=== PATIENT | male | born 1975 | race Caucasian/White ===

== ENCOUNTER 2017-09-30 09:00 | Outpatient (RCR) | payer OTHER, SELFPAY | END 2017-09-30 23:59 | LOC: PT 09:00 | PROVIDERS: Visit Provider Physician Assistant Medical | DX: M97.8XXA Periprosthetic fracture around other internal prosthetic joint, initial encounter (principal) | CPT/HCPCS: 97010; 97014; 97110; 97140; 97161; G0283 ==

== ENCOUNTER → 2017-11-07 10:40 | Outpatient (REF) | payer OTHER, SELFPAY ==
[2017-11-07 14:52] LABS: Amphetamine/Metha Screen,Urine Negative ng/mL (<1000); Barbiturates Screen,Urine Negative ng/mL (<200); Benzodiazepines Screen,Urine Negative ng/mL (200); Cannabinoid Screen,Urine Negative ng/mL (<50); Cocaine Screen,Urine Negative ng/g (<300); Methadone Screen,Urine Negative ng/mL (<300); Opiate Screen,Urine Negative ng/mL (<300); Phencyclidine Screen,Urine Negative ng/mL (<25)
== END ==
LOC: LAB 10:40
PROVIDERS: Visit Provider Nurse Practitioner Family
DX: Z79.899 Other long term (current) drug therapy (principal)
CPT/HCPCS: 80305

== ENCOUNTER → 2017-11-07 13:43 | Outpatient (CLI) | payer OTHER, SELFPAY | PROVIDERS: Visit Provider Nurse Practitioner Family | DX: Z79.899 Other long term (current) drug therapy (principal) ==

== ENCOUNTER → 2017-12-02 09:56 | Outpatient (REF) | payer OTHER, SELFPAY ==
[2017-12-02 15:03] LABS: Amphetamine/Metha Screen,Urine Negative ng/mL (<1000); Barbiturates Screen,Urine Negative ng/mL (<200); Benzodiazepines Screen,Urine Negative ng/mL (200); Cannabinoid Screen,Urine Negative ng/mL (<50); Cocaine Screen,Urine Negative ng/g (<300); Methadone Screen,Urine Negative ng/mL (<300); Opiate Screen,Urine Positive ng/mL (<300); Phencyclidine Screen,Urine Negative ng/mL (<25)
== END ==
LOC: LAB 09:56
PROVIDERS: Visit Provider Nurse Practitioner Family
DX: Z79.899 Other long term (current) drug therapy (principal)
CPT/HCPCS: 80305

== ENCOUNTER 2018-01-01 09:00 | Outpatient (RCR) | payer OTHER, SELFPAY | END 2018-01-01 09:01 | disposition home or self-care (01) | LOC: PT 09:00 | PROVIDERS: Visit Provider Physician Assistant Medical | DX: M97.8XXA Periprosthetic fracture around other internal prosthetic joint, initial encounter (principal) | CPT/HCPCS: 97010; 97014; 97110; 97140; 97164; G0283 ==

== ENCOUNTER → 2018-01-02 11:15 | Outpatient (REF) | payer OTHER, SELFPAY ==
[2018-01-02 19:04] LABS: Amphetamine/Metha Screen,Urine Negative ng/mL (<1000); Barbiturates Screen,Urine Negative ng/mL (<200); Benzodiazepines Screen,Urine Negative ng/mL (200); Cannabinoid Screen,Urine Negative ng/mL (<50); Cocaine Screen,Urine Negative ng/g (<300); Methadone Screen,Urine Negative ng/mL (<300); Opiate Screen,Urine Negative ng/mL (<300); Phencyclidine Screen,Urine Negative ng/mL (<25)
== END ==
LOC: LAB 11:15
PROVIDERS: Visit Provider Nurse Practitioner Family
DX: Z79.899 Other long term (current) drug therapy (principal)
CPT/HCPCS: 80305

== ENCOUNTER → 2018-01-02 20:48 | Outpatient (CLI) | payer OTHER, SELFPAY ==
[2018-01-14 06:43] LABS: Opiates Negative (Cutoff=100)
== END ==
PROVIDERS: Visit Provider Nurse Practitioner Family
DX: Z79.891 Long term (current) use of opiate analgesic (principal)
CPT/HCPCS: 80361; 80365; G0480

== ENCOUNTER 2018-01-12 13:47 | Outpatient (RCR) | payer OTHER, SELFPAY | END 2018-01-12 13:48 | disposition home or self-care (01) | LOC: PT 13:47 | PROVIDERS: Family Provider Emergency Medicine; PCP Emergency Medicine; Visit Provider Physician Assistant Medical | DX: M97.8XXA Periprosthetic fracture around other internal prosthetic joint, initial encounter (principal); Z96.649 Presence of unspecified artificial hip joint | CPT/HCPCS: 97163 ==

== ENCOUNTER → 2018-01-14 13:33 | Outpatient (CLI) | payer OTHER, SELFPAY ==
--- NOTE | 2018-01-14 13:35 | CA_ITS ---
PROCEDURE: 2-D M-mode and color Doppler study INDICATIONS FOR THE TEST: Chest pain COPD Heart Murmur Tobacco Smoking+ Palpitations Fatigue+ Syncope Edema Hypertension+Diabetes Mellitus Rheumatic Fever SOB+SONI Obesity Hyperlipidemia Family History HD Additional History dizziness PATIENT INFORMATION HEIGHT: 69 WEIGHT:179 GENDER: Male B/P: 172/92 2-D/M-MODE INTERPRETATION: 2-D MEASUREMENTS OBSERVED VALUES IN CMS Right Ventricular Dimension (RVDd) 2.3 Interventricular Septum (Thickness)(IVsd) 1.2 Left Ventricular Internal Dimensions(LVIDd) 4.7 Left Ventricular Posterior Wall (Thickness)(LVPWd) 0.9 Aortic Root 3.0 Aortic Cusp Separation 2.2 Left Atrial Dimensions (LAD) 3.5 2D 1. Left atrium is mildly enlarged, left ventricle is normal size, there is mild concentric left ventricular hypertrophy, visually estimated ejection fraction of 55% with no obvious regional wall motion abnormality. 2. The right atrium and right ventricle are mildly enlarged with normal contractility. 3. The aortic valve is minimally thickened and fibrosed. 4. The mitral and tricuspid valvular minimally thickened. 5. The pulmonic valve is poorly 6. There is trivial pericardial effusion noted. DOPPLER INTERROGATION: Doppler interrogation of the aortic, mitral and tricuspid valvular presence of mild aortic, mild mitral and tricuspid regurgitation. Tricuspid regurgitant jet velocity is insufficient for calculation of the right ventricular systolic pressure, grade 1 diastolic dysfunction seen with tissue Doppler evidence of raised left atrial pressure. CONCLUSION: 1. Mild biatrial enlargement, normal left ventricular size, mild concentric left ventricular hypertrophy, visually estimated ejection fraction of 55% with no obvious regional wall motion abnormality, grade 1 diastolic dysfunction seen with tissue Doppler evidence of grade left atrial pressure. 2. Mild aortic, mild mitral and tricuspid regurgitation. 3. There is trivial pericardial effusion noted.
== END ==
PROVIDERS: Family Provider Emergency Medicine; PCP Emergency Medicine; Visit Provider Internal Medicine
DX: I10 Essential (primary) hypertension (principal); R06.00 Dyspnea, unspecified; F17.200 Nicotine dependence, unspecified, uncomplicated
CPT/HCPCS: 93306

== ENCOUNTER → 2018-01-19 11:08 | Outpatient (REF) | payer OTHER, SELFPAY ==
[2018-01-19 13:56] LABS: Amphetamine/Metha Screen,Urine Negative ng/mL (<1000); Barbiturates Screen,Urine Negative ng/mL (<200); Benzodiazepines Screen,Urine Negative ng/mL (200); Cannabinoid Screen,Urine Negative ng/mL (<50); Cocaine Screen,Urine Negative ng/g (<300); Methadone Screen,Urine Negative ng/mL (<300); Opiate Screen,Urine Negative ng/mL (<300); Phencyclidine Screen,Urine Negative ng/mL (<25)
== END ==
LOC: LAB 11:08
PROVIDERS: Visit Provider Nurse Practitioner Family
DX: Z79.899 Other long term (current) drug therapy (principal)
CPT/HCPCS: 80305

== ENCOUNTER → 2018-06-30 11:52 | Outpatient (CLI) | payer OTHER, SELFPAY ==
[2018-06-30 13:07] LABS: Anion Gap 11.7 mEq/L (5-15); Blood Urea Nitrogen 5 mg/dL (7-18); Calcium 9.1 mg/dL (8.5-10.1); Carbon Dioxide 31 mmol/L (21.0-32.0); Chloride 102 mmol/L (98-107); Estimated Glomerular Filt Rate 124 ml/min (>60); GFR (African American) 150 ML/MIN (>60); Glucose 99 mg/dL (74-106); Potassium 3.7 mmoL/L (3.5-5.1); Sodium 141 mmol/L (136-145)
== END ==
PROVIDERS: Family Provider Emergency Medicine; PCP Emergency Medicine; Visit Provider Internal Medicine Cardiovascular Disease
DX: I10 Essential (primary) hypertension (principal); F17.200 Nicotine dependence, unspecified, uncomplicated
CPT/HCPCS: 36415; 80048

== ENCOUNTER → 2020-08-15 17:12 | Outpatient (CLI) | payer BC, OTHER, SELFPAY ==
[2020-08-15 18:43] LABS: Basophils # 0.1 K/mm3 (0-0.2); Basophils % 0.4 % (0.1-2.0); Eosinophils # 0.2 K/mm3 (0.0-0.4); Eosinophils % 1.6 % (0.1-12.0); Hematocrit 45.1 % (42.0-52.0); Hemoglobin 15.3 g/dL (14.1-18.0); Lymphocytes # 3.3 K/mm3 (0.7-4.5); Mean Corpuscular Hemoglobin 30.4 pg (27.0-31.2); Mean Corpuscular Volume 89.5 fl (80-94); Mean Platelet Volume 8.9 fl (7.4-10.4); Monocytes # 0.8 K/mm3 (0.1-1.0); Monocytes % 6.5 % (1.7-9.3); Neutrophils # 7.4 K/mm3 (1.8-7.8); Neutrophils % 63.4 % (37.0-80.0); Platelet Count 346 K/mm3 (142-424); Red Blood Count 5.04 M/mm3 (4.60-6.20); Red Cell Distribution Width 13.7 % (11.5-17.5); White Blood Count 11.6 K/mm3 (4.8-10.8)
[2020-08-15 19:42] LABS: Alanine Aminotransferase 22 U/L (12-78); Albumin Level 4.4 g/dl (3.5-5.0); Albumin/Globulin Ratio 1.6 (1.1-1.8); Alkaline Phosphatase 85 U/L (38-126); Anion Gap 13.1 mEq/L (5-15); Aspartate Amino Transferase 27 U/L (17-59); Bilirubin,Total 0.5 mg/dl (0.2-1.3); Blood Urea Nitrogen 10 mg/dl (9-20); Calcium 9.4 mg/dl (8.4-10.2); Carbon Dioxide 29 mmol/L (22.0-30.0); Chloride 104 mmol/L (98-107); Chol/HDL Ratio 2.9 (1-3.5); Cholesterol 113 mg/dl (140-200); Estimated Glomerular Filt Rate 92 ml/min (>60); GFR (African American) 111 ML/MIN (>60); Globulin 2.8 g/dL (1.3-3.2); Glucose 99 mg/dl (74-100); HDL Cholesterol 39 mg/dl (40-60); Potassium 4.1 mmoL/L (3.5-5.1); Sodium 142 mmol/L (136-145); Total Protein,Serum 7.2 g/dl (6.3-8.2); Triglycerides 150 mg/dl (30-150); VLDL Cholesterol 30 mg/dL (0-40)
[2020-08-15 19:53] LABS: Direct LDL Cholesterol 61.44 mg/dL (100-129)
[2020-08-15 19:58] LABS: 25-OH Vitamin D, Total 24.5 ng/mL (30-100); Free T4 (Free Thyroxine) 1.56 ng/dl (0.78-2.19)
[2020-08-15 20:13] LABS: Thyroid Stimulating Hormone 1.08 uIU/mL (0.465-4.68)
== END ==
PROVIDERS: Visit Provider Emergency Medicine
DX: R06.00 Dyspnea, unspecified (principal); E55.9 Vitamin D deficiency, unspecified
CPT/HCPCS: 80053; 80061; 82306; 84439; 84443; 85025

== ENCOUNTER 2022-05-19 10:04 | Emergency (ER) | payer OTHER, SELFPAY ==
[2022-05-19 10:16] VITALS: BMI 20.7
[2022-05-19 10:17] VITALS: BP 145/93; PULSE 79; RESP 18; TEMP 36.8; O2SAT 100; BMI 20.7
--- NOTE | 2022-05-19 10:17 | XR_ITS ---
PROCEDURE INFORMATION: Exam: XR Left Hip Exam date and time: 05/19/2022 10:39 AM Age: 47 years old Clinical indication: Injury or trauma; Fall; Blunt trauma (contusions or hematomas); Left; Hip TECHNIQUE: Imaging protocol: Radiologic exam of the Left hip. Views: 2 or 3 views hip with pelvis when performed. COMPARISON: CR SPLUMBLM XR lumbar spine 2-3V 02/14/2018 10:52 AM FINDINGS: Bones/joints: Ham and screw proximal right femur. No acute fracture or dislocation left hip. Soft tissues: Unremarkable. IMPRESSION: No acute fracture or dislocation left hip.
--- NOTE | 2022-05-19 10:17 | XR_ITS ---
PROCEDURE INFORMATION: Exam: XR Chest Exam date and time: 05/19/2022 10:36 AM Age: 47 years old Clinical indication: Injury or trauma; Fall; Blunt trauma (contusions or hematomas) TECHNIQUE: Imaging protocol: Radiologic exam of the chest. Views: 2 views. COMPARISON: CR CXR2 CHEST-AP VIEW ONLY 08/24/2017 5:37 PM FINDINGS: Lungs: Unremarkable. No consolidation. Pleural spaces: Unremarkable. No pleural effusion. No pneumothorax. Heart/Mediastinum: Unremarkable. No cardiomegaly. Bones/joints: Unremarkable. IMPRESSION: No acute findings.
--- NOTE | 2022-05-19 10:46 | HMH.EDGENADL ---
ED Disposition Clinical Impression: Traumatic chest pain Disposition: Home, Self-Care Condition on Discharge: Fair Additional Instructions: Take prescriptions as prescribed. If you have any other concerning signs or symptoms, return to your primary care provider or the emergency department for further evaluation. Prescriptions: Lidocaine 1 each TP DAILY #10 patch Transmission [facility]: [id number] methocarbamoL [Methocarbamol 500mg Tablet] 1,500 mg PO TID 5 Days #45 tab Transmission Status: [id number] Referrals: Stanley Hansen MD [Primary Care Provider] - Forms: Work/School Release - Critical Care Critical Care Time: No Attestation: On , the high probability of a clinically significant, sudden or life threatening deterioration of the following system(s) required my full and direct attention, intervention and personal management. The time I documented below is in addition to time spent performing reported procedures but includes the following listed in this critical care notation. Medical Decision Making - Ulises Inquiry Pt receiving controlled substance: No Vital Signs: 05/19/22 10:17 05/19/22 10:53 05/19/22 10:57 Temperature 98.2 F Temperature Source Oral Pulse Rate 82 82 Pulse Rate [Left Radial] 79 Respiratory Rate 18 Blood Pressure 165/99 H Blood Pressure [Right Arm] 145/93 H Blood Pressure Mean 114 Blood Pressure Mean [Right Arm] 110 Blood Pressure Source Blood Pressure Position 02 Sat by Pulse Oximetry 100 99 100 Oxygen Delivery Method Room Air Room Air Room Air 05/19/22 11:00 05/19/22 11:30 05/19/22 12:23 Temperature 98.2 F Temperature Source Oral Pulse Rate 73 65 77 Pulse Rate [Left Radial] Respiratory Rate 20 Blood Pressure 170/95 H 168/101 H 137/89 Blood Pressure [Right Arm] Blood Pressure Mean 120 Blood Pressure Mean [Right Arm] Blood Pressure Source Automatic Cuff Blood Pressure Position Sitting 02 Sat by Pulse Oximetry 99 99 Oxygen Delivery Method Room Air Room Air Orders (Tests/Meds): ED MEDICATIONS Discontinued Medications Generic Name Dose Route Start Last Admin Trade Name Freq PRN Reason Stop Dose Admin Hydrocodone Bitart/Acetaminophen 1 tab 05/19/22 10:44 05/19/22 10:56 Hydrocodone/Apap 5/325 Mg Tablet PO 05/19/22 10:45 1 tab ONCE ONE Administration Diazepam 2 mg 05/19/22 10:44 05/19/22 11:03 Diazepam 2mg Tablet PO 05/19/22 10:45 2 mg ONCE ONE Administration Lidocaine 1 each 05/19/22 11:02 05/19/22 11:03 Lidocaine 5% Transdermal Patch TP 05/19/22 11:03 1 each ONCE ONE Administration Methocarbamol 1,500 mg 05/19/22 10:46 05/19/22 10:56 Methocarbamol 500mg Tablet PO 05/19/22 10:47 1,500 mg ONCE ONE Administration Medical Decision Narrative: Is a 47-year-old male with history of hypertension presenting with left-sided pain after fall. On arrival, patient hemodynamically stable, alert, oriented, moving all extremities spontaneously, pupils equal and reactive to light, GCS 15. Differential occludes fracture, sprain, strain, pneumothorax, bruise, dislocation, among others. Work-up significant for no fracture, dislocation, or acute intrathoracic process identified on imaging. Given unremarkable physical exam, patient was given 2 mg Valium, 1500 mg Robaxin, lidocaine patch with significant symptomatic relief. Patient's clinical picture most likely represents acute MSK bruising versus sprain in the setting of fall. He was deemed appropriate for discharge because of this. Patient was given Robaxin, lidocaine patches sent to his pharmacy as well as a work excuse for the next 48 hours. Results were relayed to patient who voiced understanding and were agreeable to outpatient management and follow up. Patient was discharged in hemodynamically stable condition with recommended primary care follow-up. General Adult HPI - Genera
[2022-05-19 10:53] VITALS: PULSE 82; O2SAT 99
[2022-05-19 10:57] VITALS: BP 165/99; PULSE 82; O2SAT 100
[2022-05-19 11:00] VITALS: BP 170/95; PULSE 73; O2SAT 99
[2022-05-19 11:30] VITALS: BP 168/101; PULSE 65; O2SAT 99
--- NOTE | 2022-05-19 11:57 | PC.NURSE ---
ER at speaking with patient regarding update on imaging results/POC
[2022-05-19 12:23] VITALS: BP 137/89; PULSE 77; RESP 20; TEMP 36.8; O2SAT 99
== END 2022-05-19 12:15 | disposition home or self-care (01) ==
PROVIDERS: Emergency Provider Emergency Medicine; PCP Emergency Medicine
DX: R07.89 Other chest pain (principal); R07.81 Pleurodynia; M25.552 Pain in left hip; W11.XXXA Fall on and from ladder, initial encounter; Y92.009 Unspecified place in unspecified non-institutional (private) residence as the place of occurrence of the external cause
CPT/HCPCS: 71046; 73502; 99284

== ENCOUNTER → 2022-05-22 11:05 | Outpatient (CLI) | payer OTHER, SELFPAY ==
--- NOTE | 2022-05-22 11:10 | XR_ITS ---
FINAL REPORT CLINICAL HISTORY: rib pain on left side, recent fall FINDINGS: LEFT RIB SERIES Two views of the left ribs show no fractures. There is no pneumothorax or pleural fluid collection. IMPRESSION: Negative left rib series. No pneumothorax. Reviewed, Interpreted and Dictated by Derick Huynh MD Transcribed by Janeth Mathis Authenticated and [facility]
== END ==
PROVIDERS: PCP Emergency Medicine; Visit Provider Emergency Medicine
DX: R07.81 Pleurodynia (principal)
CPT/HCPCS: 71100

== ENCOUNTER → 2022-10-09 13:02 | Outpatient (CLI) | payer OTHER, SELFPAY ==
--- NOTE | 2022-10-09 13:09 | XR_ITS ---
FINAL REPORT CLINICAL HISTORY: neck pain FINDINGS: CERVICAL SPINE Four views were obtained. There is no acute fracture. There is no malalignment. There are mild and moderate degenerative changes with multilevel osteophytes. There are areas of neural foraminal narrowing which is greatest on the right at C6-7. There is no soft tissue abnormality. IMPRESSION: Degenerative changes as above with no acute bony abnormality. Reviewed, Interpreted and Dictated by Raymond Rothman III, MD Transcribed by Geno Levine Authenticated and [facility]
--- NOTE | 2022-10-09 13:09 | XR_ITS ---
FINAL REPORT CLINICAL HISTORY: right arm pain FINDINGS: Right humerus Three views were obtained. There is no acute fracture or dislocation. The joint spaces appear normal. No soft tissue abnormality is identified. IMPRESSION: No acute process. Reviewed, Interpreted and Dictated by Raymond Rothman III, MD Transcribed by Dominga Noyola Authenticated and [facility]
--- NOTE | 2022-10-09 13:09 | XR_ITS ---
FINAL REPORT CLINICAL HISTORY: shoulder pain FINDINGS: RIGHT SHOULDER 3 views of the right shoulder were obtained. There is no acute fracture or dislocation. There is mild degenerative change of the acromioclavicular joint.. There is no soft tissue abnormality. IMPRESSION: Mild degenerative change of the acromioclavicular joint with no acute bony abnormality. Reviewed, Interpreted and Dictated by Raymond Rothman III, MD Transcribed by Geno Levine Authenticated and [facility]
--- NOTE | 2022-10-09 13:09 | XR_ITS ---
FINAL REPORT CLINICAL HISTORY: right arm pain FINDINGS: Right elbow Three views were obtained. There is no acute fracture or dislocation. There are mild degenerative changes. There is chronic calcification adjacent to the medial humeral epicondyle. IMPRESSION: No acute process. Reviewed, Interpreted and Dictated by Raymond Rothman III, MD Transcribed by Dominga Noyola Authenticated and . [facility]
== END ==
PROVIDERS: PCP Emergency Medicine; Visit Provider Emergency Medicine
DX: M54.2 Cervicalgia (principal); M25.511 Pain in right shoulder; M79.601 Pain in right arm
CPT/HCPCS: 72050; 73030; 73060; 73080

== ENCOUNTER → 2022-10-18 14:37 | Outpatient (CLI) | payer OTHER, SELFPAY | PROVIDERS: PCP Emergency Medicine; Visit Provider Family Medicine | DX: M50.123 Cervical disc disorder at C6-C7 level with radiculopathy (principal) ==

== ENCOUNTER → 2022-10-23 16:40 | Outpatient (CLI) | payer OTHER, SELFPAY ==
--- NOTE | 2022-10-23 16:40 | MR_ITS ---
PROCEDURE INFORMATION: Exam: MR Cervical Spine Without Contrast Exam date and time: 10/23/2022 4:59 PM Age: 47 years old Clinical indication: Neck pain; Additional info: Neck pain down right arm. Best images possible patient had to lay on right side in order to do scan this was 2nd attempt. Patient kept moving during scan TECHNIQUE: Imaging protocol: Magnetic resonance imaging of the cervical spine without contrast. COMPARISON: CR XR CERVICAL SPINE 5V 10/09/2022 1:10 PM FINDINGS: Bones/joints: Study is limited by rotated patient positioning with left convexity of the cervical spine. The vertebral body heights are maintained. The sagittal alignment is near anatomic. The marrow signal is normal. No acute osseous injury. Spinal cord: Normal signal. No cord compression. C2-C3: No significant disc disease. No significant spinal stenosis. C3-C4: C3-C4 minimal uncovertebral joint osteophyte causes mild narrowing of the left neural foramen. C4-C5: C4-C5 asymmetric left-sided dorsal endplate osteophyte and disc material mildly narrows the spinal canal. There is progressive severe left and mild right neural foraminal stenosis also present. C5-C6: C5-C6 diffuse disc bulging and dorsal endplate osteophytes cause severe narrowing of the spinal canal appearing progressive since the comparison CT. There is also severe left neural foraminal stenosis present. C6-C7: C6-C7 dorsal endplate osteophyte and disc material cause severe spinal canal narrowing similar to the comparison CT. There is also severe narrowing of both neural foramen, progressive on the right side. C7-T1: C7-T1 minimal diffuse disc bulging without spinal canal narrowing. The neural foramen are mildly narrowed on both sides due to osteophyte. Soft tissues: Unremarkable. Vasculature: Expected flow voids in the vertebral arteries. Other findings: Study is degraded by motion. IMPRESSION: Multilevel degenerative disc disease, progressive since comparison CT 03/06/2016, as described. Progressive severe spinal canal stenosis at C5-C6. Persistent severe C6-C7 spinal canal stenosis. Multilevel severe neural foraminal narrowing is present, progressive at many levels.
== END ==
PROVIDERS: PCP Emergency Medicine; Visit Provider Family Medicine
DX: M25.511 Pain in right shoulder (principal); M54.2 Cervicalgia
CPT/HCPCS: 72141; 76376

== ENCOUNTER 2022-11-19 16:00 | Outpatient (RCR) | payer OTHER, SELFPAY ==
--- NOTE | 2022-10-22 16:52 | HMH.PTOPEV ---
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 Pt reports a throbbing pain from the top of his shoulder to his elbow and muscle spasms of his bicep. Pt reports pain is worse when he straightens his elbow with his palm up, feels better when he rotates his palm down. Pt denies numbness/tingling of the RUE. Pt reports he tried to get a cervical MRI last week but was unable to lay flat due to pain and is going to try again tomorrow. Pt reports he did had xrays of his neck and shoulder at [facility] on 10/09/22. . Pt had a shoulder/humerus xray with findings: Mild degenerative change of the acromioclavicular joint with no acute bony abnormality. Pt's cervical spine radiograph findings include: Mild and moderate degenerative changes with multilevel osteophytes. There are areas of neural foraminal narrowing which is greatest on the right at C6-7. 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
== END 2022-11-19 16:05 | disposition home or self-care (01) ==
LOC: PT 16:00
PROVIDERS: PCP Emergency Medicine; Visit Provider Emergency Medicine
DX: M54.2 Cervicalgia (principal); M79.601 Pain in right arm
CPT/HCPCS: 97010; 97012; 97014; 97110; 97140; 97163; G0283

== ENCOUNTER → 2023-01-10 14:08 | Outpatient (CLI) | payer OTHER, SELFPAY ==
--- NOTE | 2023-01-10 14:13 | CT_ITS ---
FINAL REPORT CLINICAL HISTORY: CERVICAL RADUCULOPATHY FINDINGS: Axial CT images of the cervical spine were obtained without contrast. Sagittal and coronal reformatted images were also obtained. This study was performed with techniques to keep radiation doses as low as reasonably achievable (ALARA). Individualized dose reduction techniques using automated exposure control or adjustment of mA and/or kV according to the patient's size were employed. There is no evidence of fracture or dislocation. There is mild retrolisthesis of C4 on C5 and C5 on C6. Multilevel disc osteophyte complexes are noted. No paraspinous soft tissue abnormality is seen. Limited images of the upper thorax are unremarkable. Mucosal thickening is noted in multiple sinuses. C2-3: There is a small left paracentral disc protrusion. There is no significant canal stenosis or neural foraminal narrowing. C3-4: An annular bulge is present. There is mild bilateral neural foraminal narrowing. C4-5: There is a disc osteophyte complex. There is a small right paracentral disc protrusion. There is mild bilateral neural foraminal narrowing. C5-6: There is a disc osteophyte complex. There is moderate right and mild left neural foraminal narrowing. There is mild central canal stenosis with an AP diameter of the thecal sac of 7 mm. C6-7: There is a disc osteophyte complex. There is severe bilateral neural foraminal narrowing. There is mild central canal stenosis with an AP diameter of the thecal sac of 7 mm. C7-T1: There is no significant canal stenosis or neural foraminal narrowing. IMPRESSION: Multilevel degenerative changes with neural foraminal narrowing and central canal stenosis as described above. Small left paracentral disc protrusion at C2-3. Small right paracentral disc protrusion at C4-5. Reviewed, Interpreted and Dictated by Raymond Rothman III, MD Transcribed by Sommer Alvarez Authenticated and [facility]
--- NOTE | 2023-01-10 14:14 | XR_ITS ---
FINAL REPORT CLINICAL HISTORY: CERVICAL RADICULOPATHY FINDINGS: CERVICAL SPINE 7 views were obtained including flexion and extension. There is no acute fracture. There is no malalignment. Mild and moderate degenerative changes are seen at C5-6 and C6-7. There is no soft tissue abnormality. There is no abnormal movement with flexion and extension. IMPRESSION: Degenerative changes with no acute bony abnormality. No abnormal movement with flexion and extension. Reviewed, Interpreted and Dictated by Raymond Rothman III, MD Transcribed by Sommer Alvarez Authenticated and [facility]
--- NOTE | 2023-01-10 14:34 | MR_ITS ---
FINAL REPORT CLINICAL HISTORY: CERVICAL RADICULOPATHY right arm pain and numbness and tingling FINDINGS: Multiplanar MR imaging of the cervical spine was performed without contrast. On the sagittal T2-weighted images, disc degeneration is seen at multiple levels. Endplate changes are seen at C5-6 and C6-7. There is no evidence of fracture. The vertebral alignment is normal. The cervical spinal cord has an unremarkable appearance without evidence of mass, edema or syrinx. The cervicomedullary junction is normal. C2-3: A small central disc protrusion is present. C3-4: An annular disc bulge is present with uncovertebral osteophytes and a small central disc protrusion. There is mild left neural foraminal narrowing. C4-5: A disc osteophyte complex is present with moderate left neural foraminal narrowing. C5-6: A disc osteophyte complex is present with a broad-based central disc protrusion and severe bilateral neural foraminal narrowing. There is mild central canal stenosis with an AP diameter of the thecal sac of 8 mm. C6-7: A disc osteophyte complex is present with severe bilateral neural foraminal narrowing. There is mild central canal stenosis with an AP diameter of the thecal sac of 8 mm. C7-T1: A small central disc protrusion is present with mild right neural foraminal narrowing. IMPRESSION: Multilevel degenerative disc disease and spondylosis with areas of neural foraminal narrowing which is worse bilaterally at C5-6 and C6-7. Mild central canal stenosis at C5-6 and C6-7. Reviewed, Interpreted and Dictated by Raymond Rothman III, MD Transcribed by Geno Levine Authenticated and [facility]
== END ==
LOC: RAD 14:08
PROVIDERS: PCP Emergency Medicine; Visit Provider Neurological Surgery
DX: M54.12 Radiculopathy, cervical region (principal)
CPT/HCPCS: 72052; 72125; 72141; 76376

== ENCOUNTER 2023-05-15 08:30 | Outpatient (RCR) | payer OTHER, SELFPAY | END 2023-05-15 08:35 | disposition home or self-care (01) | LOC: PT 08:30 | PROVIDERS: Visit Provider Neurological Surgery | DX: M54.2 Cervicalgia (principal); G95.89 Other specified diseases of spinal cord | CPT/HCPCS: 97010; 97014; 97033; 97035; 97110; 97140; 97163; 97164; 97530; G0283 ==

== ENCOUNTER 2024-03-29 15:17 | Outpatient (CLI) | payer OTHER, SELFPAY ==
--- NOTE | 2024-03-29 15:23 | XR_ITS ---
FINAL REPORT CLINICAL HISTORY: neck pain COMPARISON: 01/10/2023 FINDINGS: CERVICAL SPINE SERIES Three views demonstrate no acute fracture. There has been interval postoperative change of fusion at C5-6 and C6-7. Moderate degenerative changes are present. The disc spaces are well preserved. The vertebral body demonstrates normal height.. There is no malalignment. IMPRESSION: No acute process. Reviewed, Interpreted and Dictated by Raymond Rothman III, MD Transcribed by Melissa Sung Authenticated and [facility]
[2024-03-29 19:52] LABS: Alanine Aminotransferase 20 U/L (12-78); Albumin Level 4.3 g/dl (3.5-5.0); Albumin/Globulin Ratio 1.7 (1.1-1.8); Alkaline Phosphatase 81 U/L (38-126); Anion Gap 13.9 mEq/L (5-15); Aspartate Amino Transferase 27 U/L (17-59); Bilirubin,Total 0.7 mg/dl (0.2-1.3); Blood Urea Nitrogen 13 mg/dl (9-20); Calcium 9.1 mg/dl (8.4-10.2); Carbon Dioxide 30 mmol/L (22.0-30.0); Chloride 96 mmol/L (98-107); Chol/HDL Ratio 2.8 (1-3.5); Cholesterol 123 mg/dl (140-200); Estimated Glomerular Filt Rate 90 ml/min (>60); GFR (African American) 109 ML/MIN (>60); Globulin 2.6 g/dL (1.3-3.2); Glucose 97 mg/dl (74-100); HDL Cholesterol 44 mg/dl (40-60); Potassium 3.9 mmoL/L (3.5-5.1); Sodium 136 mmol/L (136-145); Total Protein,Serum 6.9 g/dl (6.3-8.2); Triglycerides 164 mg/dl (30-150); VLDL Cholesterol 33 mg/dL (0-40)
[2024-03-29 19:57] LABS: Basophils # 0.1 K/mm3 (0-0.2); Basophils % 0.7 % (0.1-2.0); Eosinophils # 0.3 K/mm3 (0.0-0.4); Eosinophils % 3.7 % (0.1-12.0); Hematocrit 48.3 % (42.0-52.0); Hemoglobin 16.2 g/dL (14.1-18.0); Lymphocytes # 2.4 K/mm3 (0.7-4.5); Mean Corpuscular HGB Conc 33.5 g/dL (31.8-35.4); Mean Corpuscular Hemoglobin 30.8 pg (27.0-31.2); Mean Corpuscular Volume 91.9 fl (80-94); Mean Platelet Volume 9.3 fl (7.4-10.4); Monocytes # 0.5 K/mm3 (0.1-1.0); Monocytes % 5.3 % (1.7-9.3); Neutrophils # 5.8 K/mm3 (1.8-7.8); Neutrophils % 64.3 % (37.0-80.0); Platelet Count 295 K/mm3 (142-424); Red Blood Count 5.26 M/mm3 (4.60-6.20); Red Cell Distribution Width 13.1 % (11.5-17.5); White Blood Count 9.1 K/mm3 (4.8-10.8)
[2024-03-29 20:03] LABS: 25-OH Vitamin D, Total 50.6 ng/mL (30-100); Direct LDL Cholesterol 49.69 mg/dL (100-129)
[2024-03-29 20:21] LABS: Prostate Specific Ag Screen 0.9 ng/ml (0.0-4.0); Thyroid Stimulating Hormone 2.45 uIU/mL (0.465-4.68)
[2024-03-29 20:40] LABS: Vitamin B12 482 pg/mL (239-931)
[2024-03-29 21:16] LABS: Hemoglobin A1C 5.6 % (4.0-6.0)
[2024-03-29 23:22] LABS: HIV (1&2) Antibody Rapid NONREACTIVE
[2024-03-31 07:13] LABS: HCV Ab Non Reactive (Non Reactive)
== END 2024-03-29 23:59 | disposition home or self-care (01) ==
LOC: LAB.DROPOF 15:17
PROVIDERS: PCP Family Medicine; Visit Provider Family Medicine
DX: M54.2 Cervicalgia (principal); M48.02 Spinal stenosis, cervical region; E55.9 Vitamin D deficiency, unspecified
CPT/HCPCS: 72040; 80050; 80053; 80061; 82306; 82607; 83036; 84443; 85025; G0103

== ENCOUNTER 2024-04-27 08:41 | Outpatient (CLI) | payer OTHER, SELFPAY ==
--- NOTE | 2024-04-27 08:44 | XR_ITS ---
FINAL REPORT CLINICAL HISTORY: wrist pain, carpel tunnel FINDINGS: Left wrist Three views were obtained. There is no acute fracture or dislocation. The joint spaces appear normal. No soft tissue abnormality is identified. IMPRESSION: No acute process. Reviewed, Interpreted and Dictated by Derick Huynh MD Transcribed by Dominga Noyola Authenticated and [facility]
--- NOTE | 2024-04-27 08:44 | XR_ITS ---
FINAL REPORT CLINICAL HISTORY: wrist pain, carpel tunnel FINDINGS: Right wrist Three views were obtained. There is no acute fracture or dislocation. The joint spaces appear normal. No soft tissue abnormality is identified. IMPRESSION: No acute process. Reviewed, Interpreted and Dictated by Deirck Huynh MD Transcribed by Dominga Noyola Authenticated and . [facility]
== END 2024-04-27 23:59 | disposition home or self-care (01) ==
LOC: RAD 08:42
PROVIDERS: PCP Family Medicine; Visit Provider Physician Assistant
DX: G56.03 Carpal tunnel syndrome, bilateral upper limbs (principal)
CPT/HCPCS: 73110